=== PATIENT | female | born 1990 | race Caucasian/White ===

== ENCOUNTER 2018-09-10 02:03 | Emergency (ER) | payer SELFPAY ==
[~2018-09-10] VITALS: Ht 160 cm; Wt 72.6 kg
[2018-09-10 02:07] VITALS: BP 128/70
[2018-09-10 04:00] VITALS: BP 122/66
[2018-09-10 05:58] VITALS: BP_SYST 122; BP_SYST 125; BP_DIAS 66; BP_DIAS 70
--- NOTE | 2018-09-11 07:00 | Emergency Room Report ---
History of Present Illness General Chief Complaint: Altered Level of Consciousness Source: Patient, EMS Present Illness HPI Patient present by paramedics for reports of altered mental status Patient reports that she had heavy alcohol intake last night Upon initial arrival the patient was inebriated not able to provide full history Throughout the stay and sobering patient became more awake Verbalizes that she had gone out with some friends Lost her keys on the way back into her house and essentially fell asleep outside of her apartment Denies any headache denies any chest pain denies any nausea Please note that most of the history is obtained after the patient's further sobering effect Allergies: Coded Allergies: No Known Allergies (Unverified , 09/10/18) Patient History Past Medical History: see triage record Pertinent Family History: none Last Menstrual Period: 3 weeks ago Now: No Reviewed Nursing Documentation: PMH: Agreed; PSxH: Agreed Nursing Documentation-PMH Past Medical History: No Stated History Review of Systems All Other Systems: negative except mentioned in HPI Physical Exam Vital Signs Date Time Temp Pulse Resp B/P (MAP) Pulse Ox O2 Delivery O2 Flow Rate FiO2 09/10/18 01:48 97.5 108 18 130/64 99 Room Air Sp02 EP Interpretation: reviewed, normal General Appearance: no apparent distress Head: normocephalic, atraumatic Eyes: bilateral eye PERRL, bilateral eye EOMI ENT: normal ENT inspection, hearing grossly normal, normal pharynx Neck: supple Respiratory: lungs clear, no respiratory distress, no retraction Cardiovascular #1: regular rate, rhythm Gastrointestinal: non tender, soft Musculoskeletal: normal inspection Neurologic: alert, oriented x3, responsive Psychiatric: normal inspection Skin: normal color Lymphatic: no adenopathy Medical Decision Making Diagnostic Impression: Primary Impression: alcohol abuse ER Course Upon initial arrival the patient is able to verbalize heavy alcohol intake did not have any obvious focal neurological deficits Therefore further imaging and blood work was initially not obtained After resting and further sobering affect Patient did contact friend Is much more awake and alert and ambulatory feels significantly better and dispositioned in the care of family/ friend Last Vital Signs Date Time Temp Pulse Resp B/P (MAP) Pulse Ox O2 Delivery O2 Flow Rate FiO2 09/10/18 05:58 97.6 70 18 125/70 100 Room Air Status: improved Disposition: HOME, SELF-CARE Condition: Improved Referrals: NOT CHOSEN IPA/MD,REFERRING (PCP) Patient Instructions: Alcohol Intoxication, [id number] Additional Instructions: Patient is provided with the discharge instructions notified to follow up with primary doctor in the next 2-3 days otherwise return to the er with any worsening symptoms. Please note that this report is being documented using [employer] technology. This can lead to erroneous entry secondary to incorrect interpretation by the dictating instrument. Nora Giron DO Sep 11, 2018 07:00
== END 2018-09-10 06:00 | disposition home or self-care (01) ==
LOC: EDBD 02:03 → EMR 02:53
DX: F10.10 Alcohol abuse, uncomplicated (principal); R41.82 Altered mental status, unspecified
CPT/HCPCS: 99283